=== PATIENT | male | born 1955 | race African-American/Black ===

== ENCOUNTER 2018-08-24 19:08 | Emergency (ER) | payer MEDICARE ==
[2018-08-24 19:37] LABS: #Basophils 0.1 thou/uL (0.0-0.2); #Lymphocytes 1.4 thou/uL (1.20-3.40); #Monocytes 1.3 thou/uL (0.11-0.59); #Neutrophils 11.2 thou/uL (1.40-6.50); %Basophils 0.5 % (0.0-1.0); %Eosinophils 0.1 % (0.0-10.0); %Monocytes 9.5 % (0.0-10.0); %Neutrophils 79.9 % (42.0-75.0); Hemoglobin 16.4 g/dL (14.0-18.0); Mean Corpuscular HGB CONC 31.8 g/dL (32.0-36.0); Mean Corpuscular Hemoglobin 29.5 pg (27.0-31.0); Mean Corpuscular Volume 92.8 fL (78.0-98.0); Mean Platelet Volume 7.1 fL (7.4-10.4); Platelet Count 255 thou/uL (130-400); RBC Distribution Width 11.9 % (11.5-14.5); Red Blood Cell (RBC) Count 5.57 mill/uL (4.70-6.10)
[2018-08-24 19:44] LABS: PTT 30.6 SEC (22.9-36.1); Prothrombin Time 13.5 SEC (12.0-14.7)
[2018-08-24 19:52] LABS: ALT (SGPT) 48 U/L (8-55); AST (SGOT) 215 U/L (5-34); Albumin 4.2 g/dL (3.4-4.8); Alkaline Phosphatase 154 U/L (40-150); Anion Gap 17 mmol/L (10-20); BUN (Urea Nitrogen) 12 mg/dL (8.4-25.7); Bilirubin, Total 0.9 mg/dL (0.2-1.2); Calc. Creatinine Clearance 0 mL/min (70-130); Calcium 9.2 mg/dL (7.8-10.44); Carbon Dioxide 24 mmol/L (23-31); Chloride 91 mmol/L (98-107); Estimated GFR-MDRD 70; Globulin 2.7 g/dL (2.4-3.5); Glucose 375 mg/dL (80-115); Potassium 4.1 mmol/L (3.5-5.1); Protein, Total 6.9 g/dL (5.8-8.1); Sodium 128 mmol/L (136-145)
--- NOTE | 2018-08-24 20:04 | RAD ---
PORTABLE CHEST: 08/24/18 An AP portable film at 1933 is compared with a 06/10/04 study. The heart is borderline in size but probably still normal for age and projection. There is no vascula r congestion, edema or pleural effusion. The lungs are clear. The trachea is midline. There is faint calcification in the aortic arch. IMPRESSION: No acute thoracic findings. POS: HOME
[2018-08-24] MEDS ORDERED: Heparin 25,000 units/D5W 500 ML ONE (20:10)
[2018-08-24] MEDS ORDERED: Nitroglycerin 50 MG/250 ML BOT 250 ML ONE (20:11)
[2018-08-24] MEDS ORDERED: Nitroglycerin 0.4 MG TAB 1 EACH ONE (20:12)
[2018-08-24] MEDS ORDERED: Aspirin Chewable 81 MG TAB ONE (20:15)
[2018-08-24 20:31] LABS: CKMB 48.5 ng/mL (0-6.6)
== END 2018-08-24 20:05 | disposition short-term general hospital (02) ==
LOC: BURERS 19:08
DX: I21.3 ST elevation (STEMI) myocardial infarction of unspecified site (principal); E11.9 Type 2 diabetes mellitus without complications; I10 Essential (primary) hypertension; E78.5 Hyperlipidemia, unspecified; Z86.73 Personal history of transient ischemic attack (TIA), and cerebral infarction without residual deficits
CPT/HCPCS: 71045; 80053; 82553; 83880; 84484; 85025; 85610; 85730; 93005; 96374; J1644

== ENCOUNTER → 2019-12-12 | Emergency (ER) | payer MEDICARE ==
[~2019-12-12] MED LIST: Fentanyl 100 MCG/2 ML VIAL ONE; Nitroglycerin 50 MG/250 ML BOT 250 ML ONE; Rocuronium Bromide 50 MG/5 ML VIAL ONE
[2019-12-12 16:20] LABS: INR-International Normal Ratio 1.2; PTT 34.5 sec (22.9-36.1); Prothrombin Time 15.2 sec (12.0-14.7)
[2019-12-12 16:28] LABS: #Basophils 0.1 thou/uL (0.0-0.2); #Lymphocytes 4.6 thou/uL (1.20-3.40); #Monocytes 1.1 thou/uL (0.11-0.59); #Neutrophils 6.1 thou/uL (1.40-6.50); %Basophils 0.8 % (0.0-1.0); %Eosinophils 0.1 % (0.0-10.0); %Lymphocytes 38.2 % (21.0-51.0); %Monocytes 9.5 % (0.0-10.0); %Neutrophils 51.4 % (42.0-75.0); Hemoglobin 14.3 g/dL (14.0-18.0); Mean Corpuscular HGB CONC 30.5 g/dL (32.0-36.0); Mean Corpuscular Hemoglobin 29.7 pg (27.0-31.0); Mean Corpuscular Volume 97.4 fL (78.0-98.0); Mean Platelet Volume 7.1 fL (7.4-10.4); Platelet Count 220 thou/uL (130-400); RBC Distribution Width 11.5 % (11.5-14.5); Red Blood Cell (RBC) Count 4.83 mill/uL (4.70-6.10); White Blood Cell (WBC) Count 11.9 thou/uL (4.8-10.8)
[2019-12-12 16:31] LABS: AST (SGOT) 56 U/L (5-34); Albumin 4.1 g/dL (3.4-4.8); Alkaline Phosphatase 237 U/L (40-110); Anion Gap 22 mmol/L (10-20); BUN (Urea Nitrogen) 7 mg/dL (8.4-25.7); Bilirubin, Total 0.4 mg/dL (0.2-1.2); CK (CPK) 155 U/L (30-200); Calc. Creatinine Clearance 0 mL/min (70-130); Calcium 8.9 mg/dL (7.8-10.44); Carbon Dioxide 19 mmol/L (23-31); Chloride 97 mmol/L (98-107); Estimated GFR-MDRD 69; Globulin 3.4 g/dL (2.4-3.5); Glucose 331 mg/dL (80-115); Potassium 3.8 mmol/L (3.5-5.1); Protein, Total 7.5 g/dL (5.8-8.1); Sodium 134 mmol/L (136-145)
[2019-12-12 16:46] LABS: ALT (SGPT) 27 U/L (8-55)
[2019-12-12 16:48] LABS: CKMB 1.3 ng/mL (0-6.6)
[2019-12-12 17:02] LABS: Base Excess-Venous -11.4 mmol/L (-2.0 to 3.0); Chloride 100 mmol/L (98-107); Hemoglobin - Calc 15.5 g/dL (14.0-18.0); Potassium 4.1 mmol/L (3.5-5.1); Sodium 137 mmol/L (138-145); T. Carbon Dioxide 26.1 mmol/L (22.0-28.0)
--- NOTE | 2019-12-12 20:36 | RAD ---
PORTABLE CHEST: Date: 12-12-2019 An AP portable film at 1633 is compared with a 10-24-[address] [facility]. FINDINGS: The patient has been intubated with the tip of the endotracheal tube in appropriate position. I belie ve an NG tube may be present as well but I cannot definitely follow it all the way to the stomach. The heart is normal in size. There are patchy pulmonary infiltrates present bilaterally, most promine nt in the right lung base. Additionally, there is a new opacity just at and above the left hilum that could be a mass or infection. There are some hazy infiltrates present in the left lung base as well, though not as prominent as the right. The costophrenic angles are not shown on the study, but no lar ge effusions were indicated. IMPRESSION: 1. Adequate position of endotracheal tube. Questionable positioning of NG tube. 2. Patchy left suprahilar opacity. Neoplasm versus infection. Follow up needed. 3. Diffuse pulmonary infiltrates, most notable in the right lung base an infectious etiology seems romelia nieves. POS: HOME
== END ==
LOC: BURERS 16:03
DX: J96.90 Respiratory failure, unspecified, unspecified whether with hypoxia or hypercapnia (principal); I16.0 Hypertensive urgency; D72.829 Elevated white blood cell count, unspecified; E87.2 Acidosis; I25.2 Old myocardial infarction; I10 Essential (primary) hypertension; E78.5 Hyperlipidemia, unspecified; E11.9 Type 2 diabetes mellitus without complications; Z95.5 Presence of coronary angioplasty implant and graft
CPT/HCPCS: 31500; 71045; 80053; 82330; 82550; 82553; 82803; 83605; 84443; 84484; 85025; 85610; 85730; 93005; 96361; 96365; 96375; J3010

== ENCOUNTER 2022-04-16 02:39 | Emergency (ER) | payer MEDICARE ==
[2022-04-16 03:39] LABS: #Lymphocytes 0.9 thou/uL (1.20-3.40); #Monocytes 0.7 thou/uL (0.11-0.59); #Neutrophils 8.6 thou/uL (1.40-6.50); %Basophils 0.5 % (0.0-1.0); %Eosinophils 0.1 % (0.0-10.0); %Lymphocytes 8.7 % (21.0-51.0); %Monocytes 7.2 % (0.0-10.0); %Neutrophils 83.6 % (42.0-75.0); Hemoglobin 14.2 g/dL (14.0-18.0); Mean Corpuscular HGB CONC 32.8 g/dL (32.0-36.0); Mean Corpuscular Hemoglobin 31.1 pg (27.0-31.0); Mean Corpuscular Volume 94.8 fl (78.0-98.0); Mean Platelet Volume 7.1 fL (7.4-10.4); Platelet Count 244 10x3/uL (130-400); RBC Distribution Width 11.4 % (11.5-14.5); Red Blood Cell (RBC) Count 4.58 mill/uL (4.70-6.10); White Blood Cell (WBC) Count 10.3 10x3/uL (4.8-10.8)
[2022-04-16] MEDS ORDERED: Lorazepam 2 MG/ML VIAL ONE ×2 (03:44→04:34)
[2022-04-16] MEDS ORDERED: niCARdipine 25 MG/10 ML VIAL ONE (03:54)
[2022-04-16 03:56] LABS: ALT (SGPT) 38 U/L (8-55); AST (SGOT) 50 U/L (5-34); Albumin 3.8 g/dL (3.4-4.8); Alkaline Phosphatase 157 U/L (40-110); Anion Gap 14 mmol/L (10-20); BUN (Urea Nitrogen) 6 mg/dL (8.4-25.7); Bilirubin, Total 0.3 mg/dL (0.2-1.2); Calc. Creatinine Clearance 0 mL/min (70-130); Calcium 8.1 mg/dL (7.8-10.44); Carbon Dioxide 29 mmol/L (23-31); Chloride 94 mmol/L (98-107); Estimated GFR 97; Globulin 2.5 g/dL (2.4-3.5); Glucose 393 mg/dL (80-115); Potassium 3.4 mmol/L (3.5-5.1); Protein, Total 6.3 g/dL (5.8-8.1); Sodium 134 mmol/L (136-145)
[2022-04-16 04:01] LABS: Base Excess-Venous -0.7 mmol/L (-2.0 to 3.0); Bicarbonate (HCO3v) 28.7 mmol/L (22.0-28.0); CO2 Tension (PvCO2) 67.3 mmHg (42.0-51.0); Calcium, Ionized 1.07 mmol/L (1.15-1.33); Chloride 92 mmol/L (98-107); Hemoglobin - Calc 15.1 g/dL (14.0-18.0); Potassium 3.3 mmol/L (3.5-5.1); Sodium 134 mmol/L (138-145); T. Carbon Dioxide 30.7 mmol/L (22.0-28.0); vO2 Saturation-calc 94.8 % (60.0-85.0)
[2022-04-16 04:08] LABS: Acetaminophen Less than 10.0 mcg/mL (10.0-30.0); Alcohol Less than 10 mg/dL (Less than 10); Salicylate Less than 8.0 mg/dL (15.0-30.0)
[2022-04-16] MEDS ORDERED: Fentanyl 100 MCG/2 ML VIAL ONE (04:17)
[2022-04-16 04:28] LABS: CKMB 3.3 ng/mL (0-6.6)
[2022-04-16] MEDS ORDERED: Aspirin 300 MG Suppository ONE (05:00)
[2022-04-16] MEDS ORDERED: Cefepime 1 GM VIAL ONE (05:00)
[2022-04-16 05:22] LABS: Bilirubin Negative (Negative); Blood, Urine Trace (Negative); Clarity Clear (Clear); Glucose, Urine (Dipstick) 500 mg/dL (Negative); Ketone, Urine Negative (Negative); Leukocyte Negative (Negative); Nitrite Negative (Negative); Protein, Urine (Dipstick) 100 mg/dL (Neg-Trace); pH, Urine 6.5 (5.0-9.0)
[2022-04-16 05:37] LABS: Amphetamine Not Detected (NotDetected); Barbiturates Screen Not Detected (NotDetected); Benzodiazepine Screen Not Detected (NotDetected); Cocaine Metabolite Screen Detected (NotDetected); Medtox Control Line Valid? VALID (VALID); Methadone Not Detected (NotDetected); Methamphetamine Not Detected (NotDetected); Opiate Screen Not Detected (NotDetected); Oxycodone Screen Not Detected (NotDetected); Phencyclidine (PCP) Not Detected (NotDetected); THC/Cannabinoid Screen Not Detected (NotDetected); Tricyclic Screen Not Detected (NotDetected)
[2022-04-16 05:39] LABS: Bacteria/HPF Rare-Few HPF (None Seen); RBC/HPF 0-3 HPF (0-3); Squamous Epithelial 0-3 HPF (0-3); WBC/HPF 0-3 HPF (0-3)
[2022-04-16] MEDS ORDERED: Rocuronium Bromide 10 MG/ML (10ML VIAL) ONE (13:08)
== END 2022-04-16 05:05 | disposition short-term general hospital (02) ==
LOC: BURERS 02:39
DX: J96.90 Respiratory failure, unspecified, unspecified whether with hypoxia or hypercapnia (principal); J44.9 Chronic obstructive pulmonary disease, unspecified; E11.9 Type 2 diabetes mellitus without complications; I10 Essential (primary) hypertension; F17.210 Nicotine dependence, cigarettes, uncomplicated; Z79.899 Other long term (current) drug therapy; Z79.82 Long term (current) use of aspirin
CPT/HCPCS: 31500; 51702; 70450; 71045; 80053; 80306; 80307; 81003; 81015; 82330; 82553; 82803; 83880; 84443; 84484; 85025; 87086; 93005; 96374; 96376; 99292; J0692; J2060; J3010

== ENCOUNTER 2022-12-25 15:36 | Inpatient (IN) | payer MEDICARE ==
[2022-12-25 19:43] VITALS: BMI 19.8
[2022-12-25] MEDS ORDERED: Bisacodyl 10 MG SUPP PR PRN (22:56)
[2022-12-25] MEDS ORDERED: Glucagon 1 MG/ML KIT IM PRN (22:58)
[2022-12-25] MEDS ORDERED: Dextrose 5% in Water 1,000 ML IV PRN (22:58)
[2022-12-25] MEDS ORDERED: Dextrose 50% Abboject 50 ML SYRINGE SLOW IVP PRN (22:58)
[2022-12-26] MEDS: Famotidine 20 MG TAB PO SCH ×2 (10:34→21:32)
[2022-12-26] MEDS: Spironolactone 25 MG TAB PO SCH (10:34)
[2022-12-26] MEDS: Amoxicillin/Potassium Clav 875 MG TAB PO SCH ×2 (10:34→21:30)
[2022-12-26] MEDS: Furosemide 20 MG TAB PO SCH (10:34)
[2022-12-26] MEDS: Carvedilol 6.25 MG TAB PO SCH ×2 (10:35→21:30)
[2022-12-26] MEDS: Lisinopril 10 MG TAB PO SCH ×2 (10:35→21:31)
[2022-12-26] MEDS: Lantus 1000 UNITS/10 ML VIAL SC SCH (10:35)
[2022-12-26] MEDS: Isosorbide Dinitrate 20 MG TAB PO SCH ×2 (10:36→21:31)
[2022-12-26] MEDS: hydrALAZINE 25 MG TAB PO SCH ×3 (10:36→21:31)
[2022-12-26] MEDS: HumaLOG 300 UNITS/3 ML VIAL SC PRN ×2 (12:00→18:38)
[2022-12-26] MEDS: Atorvastatin Calcium 40 MG TAB PO SCH (21:31)
[2022-12-27] MEDS: Acetaminophen 325 MG TAB PO PRN (04:09)
[2022-12-27] MEDS: Furosemide 20 MG TAB PO SCH (08:56)
[2022-12-27] MEDS: Spironolactone 25 MG TAB PO SCH (08:56)
[2022-12-27] MEDS: Famotidine 20 MG TAB PO SCH ×2 (08:56→21:00)
[2022-12-27] MEDS: hydrALAZINE 25 MG TAB PO SCH ×3 (08:57→21:00)
[2022-12-27] MEDS: Isosorbide Dinitrate 20 MG TAB PO SCH ×2 (08:57→21:00)
[2022-12-27] MEDS: Lisinopril 10 MG TAB PO SCH ×2 (08:57→21:00)
[2022-12-27] MEDS: Carvedilol 6.25 MG TAB PO SCH ×2 (08:57→21:00)
[2022-12-27] MEDS: Amoxicillin/Potassium Clav 875 MG TAB PO SCH ×2 (08:58→21:00)
[2022-12-27] MEDS: Lantus 1000 UNITS/10 ML VIAL SC SCH (09:08)
[2022-12-27] MEDS: HumaLOG 300 UNITS/3 ML VIAL SC PRN (12:17)
[2022-12-27] MEDS: Atorvastatin Calcium 40 MG TAB PO SCH (21:00)
[2022-12-28] MEDS: Amoxicillin/Potassium Clav 875 MG TAB PO SCH ×2 (08:13→21:10)
[2022-12-28] MEDS: Furosemide 20 MG TAB PO SCH (08:14)
[2022-12-28] MEDS: Isosorbide Dinitrate 20 MG TAB PO SCH ×2 (08:14→21:12)
[2022-12-28] MEDS: Lisinopril 10 MG TAB PO SCH ×2 (08:14→21:11)
[2022-12-28] MEDS: Spironolactone 25 MG TAB PO SCH (08:15)
[2022-12-28] MEDS: hydrALAZINE 25 MG TAB PO SCH ×3 (08:15→21:11)
[2022-12-28] MEDS: Famotidine 20 MG TAB PO SCH ×2 (08:15→21:10)
[2022-12-28] MEDS: Carvedilol 6.25 MG TAB PO SCH ×2 (08:16→21:10)
[2022-12-28] MEDS: Lantus 1000 UNITS/10 ML VIAL SC SCH (08:23)
[2022-12-28] MEDS: HumaLOG 300 UNITS/3 ML VIAL SC PRN (11:58)
[2022-12-28] MEDS: Acetaminophen 325 MG TAB PO PRN (21:11)
[2022-12-28] MEDS: Atorvastatin Calcium 40 MG TAB PO SCH (21:11)
[2022-12-29] MEDS: traMADol HCl 50 MG TAB PO PRN ×2 (05:56→22:00)
[2022-12-29] MEDS: HumaLOG 300 UNITS/3 ML VIAL SC PRN ×2 (08:51→12:28)
[2022-12-29] MEDS: Carvedilol 6.25 MG TAB PO SCH ×2 (08:52→21:01)
[2022-12-29] MEDS: hydrALAZINE 25 MG TAB PO SCH ×3 (08:52→21:00)
[2022-12-29] MEDS: Famotidine 20 MG TAB PO SCH ×2 (08:52→21:01)
[2022-12-29] MEDS: Isosorbide Dinitrate 20 MG TAB PO SCH ×2 (08:52→21:01)
[2022-12-29] MEDS: Amoxicillin/Potassium Clav 875 MG TAB PO SCH ×2 (08:53→21:01)
[2022-12-29] MEDS: Lisinopril 10 MG TAB PO SCH ×2 (08:53→21:00)
[2022-12-29] MEDS: Furosemide 20 MG TAB PO SCH (08:53)
[2022-12-29] MEDS: Spironolactone 25 MG TAB PO SCH (08:53)
[2022-12-29] MEDS: Lantus 1000 UNITS/10 ML VIAL SC SCH (08:54)
[2022-12-29] MEDS: Atorvastatin Calcium 40 MG TAB PO SCH (21:00)
[2022-12-30] MEDS: Lisinopril 10 MG TAB PO SCH ×2 (09:03→20:49)
[2022-12-30] MEDS: Amoxicillin/Potassium Clav 875 MG TAB PO SCH ×2 (09:03→20:48)
[2022-12-30] MEDS: Isosorbide Dinitrate 20 MG TAB PO SCH ×2 (09:03→20:48)
[2022-12-30] MEDS: Spironolactone 25 MG TAB PO SCH (09:03)
[2022-12-30] MEDS: Furosemide 20 MG TAB PO SCH (09:04)
[2022-12-30] MEDS: Carvedilol 6.25 MG TAB PO SCH ×2 (09:04→20:49)
[2022-12-30] MEDS: Lantus 1000 UNITS/10 ML VIAL SC SCH (09:04)
[2022-12-30] MEDS: hydrALAZINE 25 MG TAB PO SCH ×3 (09:04→20:48)
[2022-12-30] MEDS: Famotidine 20 MG TAB PO SCH ×2 (09:04→20:48)
[2022-12-30] MEDS: Atorvastatin Calcium 40 MG TAB PO SCH (20:48)
[2022-12-30] MEDS: Acetaminophen 325 MG TAB PO PRN ×2 (21:55→22:01)
[2022-12-31] MEDS: Acetaminophen 325 MG TAB PO PRN (05:40)
[2022-12-31] MEDS: traMADol HCl 50 MG TAB PO PRN ×2 (06:33→21:34)
[2022-12-31] MEDS: Isosorbide Dinitrate 20 MG TAB PO SCH ×2 (09:20→21:42)
[2022-12-31] MEDS: Amoxicillin/Potassium Clav 875 MG TAB PO SCH ×2 (09:20→21:34)
[2022-12-31] MEDS: Carvedilol 6.25 MG TAB PO SCH ×2 (09:21→21:42)
[2022-12-31] MEDS: Furosemide 20 MG TAB PO SCH (09:21)
[2022-12-31] MEDS: Spironolactone 25 MG TAB PO SCH (09:22)
[2022-12-31] MEDS: hydrALAZINE 25 MG TAB PO SCH ×3 (09:22→21:42)
[2022-12-31] MEDS: Famotidine 20 MG TAB PO SCH ×2 (09:22→21:33)
[2022-12-31] MEDS: Lisinopril 10 MG TAB PO SCH ×2 (09:22→21:43)
[2022-12-31] MEDS: Lantus 1000 UNITS/10 ML VIAL SC SCH (09:23)
[2022-12-31] MEDS: HumaLOG 300 UNITS/3 ML VIAL SC PRN ×2 (12:32→17:33)
[2022-12-31] MEDS: Atorvastatin Calcium 40 MG TAB PO SCH (21:35)
[2023-01-01] MEDS: Isosorbide Dinitrate 20 MG TAB PO SCH ×2 (09:28→21:49)
[2023-01-01] MEDS: Lisinopril 10 MG TAB PO SCH ×2 (09:29→21:48)
[2023-01-01] MEDS: Furosemide 20 MG TAB PO SCH (09:29)
[2023-01-01] MEDS: Spironolactone 25 MG TAB PO SCH (09:29)
[2023-01-01] MEDS: Amoxicillin/Potassium Clav 875 MG TAB PO SCH ×2 (09:30→21:48)
[2023-01-01] MEDS: hydrALAZINE 25 MG TAB PO SCH ×3 (09:30→21:48)
[2023-01-01] MEDS: Carvedilol 6.25 MG TAB PO SCH ×2 (09:30→21:47)
[2023-01-01] MEDS: Famotidine 20 MG TAB PO SCH ×2 (09:32→21:48)
[2023-01-01] MEDS: Lantus 1000 UNITS/10 ML VIAL SC SCH (09:33)
[2023-01-01] MEDS: Ondansetron ODT 4 MG TAB PO PRN (12:00)
[2023-01-01] MEDS: HumaLOG 300 UNITS/3 ML VIAL SC PRN ×2 (12:51→17:31)
[2023-01-01] MEDS: traMADol HCl 50 MG TAB PO PRN (12:56)
[2023-01-01] MEDS: Atorvastatin Calcium 40 MG TAB PO SCH (21:50)
[2023-01-02] MEDS: Furosemide 20 MG TAB PO SCH (09:39)
[2023-01-02] MEDS: Spironolactone 25 MG TAB PO SCH (09:39)
[2023-01-02] MEDS: Amoxicillin/Potassium Clav 875 MG TAB PO SCH ×2 (09:39→21:57)
[2023-01-02] MEDS: Lisinopril 10 MG TAB PO SCH ×2 (09:39→21:57)
[2023-01-02] MEDS: Carvedilol 6.25 MG TAB PO SCH ×2 (09:39→21:57)
[2023-01-02] MEDS: hydrALAZINE 25 MG TAB PO SCH ×3 (09:40→21:58)
[2023-01-02] MEDS: Famotidine 20 MG TAB PO SCH ×2 (09:40→21:58)
[2023-01-02] MEDS: Isosorbide Dinitrate 20 MG TAB PO SCH ×2 (09:40→21:58)
[2023-01-02] MEDS: Lantus 1000 UNITS/10 ML VIAL SC SCH (09:41)
[2023-01-02] MEDS: HumaLOG 300 UNITS/3 ML VIAL SC PRN (12:19)
[2023-01-02] MEDS: Atorvastatin Calcium 40 MG TAB PO SCH (21:58)
[2023-01-03] MEDS: Spironolactone 25 MG TAB PO SCH (08:48)
[2023-01-03] MEDS: Isosorbide Dinitrate 20 MG TAB PO SCH ×2 (08:49→20:07)
[2023-01-03] MEDS: Amoxicillin/Potassium Clav 875 MG TAB PO SCH ×2 (08:49→20:06)
[2023-01-03] MEDS: Furosemide 20 MG TAB PO SCH (08:49)
[2023-01-03] MEDS: Lisinopril 10 MG TAB PO SCH ×2 (08:49→20:07)
[2023-01-03] MEDS: hydrALAZINE 25 MG TAB PO SCH ×3 (08:49→20:07)
[2023-01-03] MEDS: Famotidine 20 MG TAB PO SCH ×2 (08:49→20:06)
[2023-01-03] MEDS: Carvedilol 6.25 MG TAB PO SCH ×2 (08:50→20:06)
[2023-01-03] MEDS: Lantus 1000 UNITS/10 ML VIAL SC SCH (08:51)
[2023-01-03] MEDS: HumaLOG 300 UNITS/3 ML VIAL SC PRN ×2 (12:02→20:08)
[2023-01-03] MEDS: Atorvastatin Calcium 40 MG TAB PO SCH (20:06)
[2023-01-03] MEDS: Ondansetron ODT 4 MG TAB PO PRN (22:12)
[2023-01-04] MEDS: Lantus 1000 UNITS/10 ML VIAL SC SCH (08:39)
[2023-01-04] MEDS: Isosorbide Dinitrate 20 MG TAB PO SCH ×2 (08:41→20:58)
[2023-01-04] MEDS: hydrALAZINE 25 MG TAB PO SCH ×3 (08:41→20:57)
[2023-01-04] MEDS: Carvedilol 6.25 MG TAB PO SCH ×2 (08:41→20:55)
[2023-01-04] MEDS: Amoxicillin/Potassium Clav 875 MG TAB PO SCH (08:41)
[2023-01-04] MEDS: Lisinopril 10 MG TAB PO SCH ×2 (08:41→20:57)
[2023-01-04] MEDS: Spironolactone 25 MG TAB PO SCH (08:41)
[2023-01-04] MEDS: Famotidine 20 MG TAB PO SCH ×2 (08:41→20:57)
[2023-01-04] MEDS: Furosemide 20 MG TAB PO SCH (08:42)
[2023-01-04] MEDS: HumaLOG 300 UNITS/3 ML VIAL SC PRN ×2 (11:54→20:54)
[2023-01-04] MEDS: Atorvastatin Calcium 40 MG TAB PO SCH (20:58)
[2023-01-05] MEDS: hydrALAZINE 25 MG TAB PO SCH ×3 (08:24→21:34)
[2023-01-05] MEDS: Lantus 1000 UNITS/10 ML VIAL SC SCH (08:24)
[2023-01-05] MEDS: Isosorbide Dinitrate 20 MG TAB PO SCH ×2 (08:25→21:33)
[2023-01-05] MEDS: Carvedilol 6.25 MG TAB PO SCH ×2 (08:25→21:33)
[2023-01-05] MEDS: Spironolactone 25 MG TAB PO SCH (08:25)
[2023-01-05] MEDS: Lisinopril 10 MG TAB PO SCH ×2 (08:25→21:30)
[2023-01-05] MEDS: Furosemide 20 MG TAB PO SCH (08:25)
[2023-01-05] MEDS: Famotidine 20 MG TAB PO SCH ×2 (08:25→21:33)
[2023-01-05] MEDS: traMADol HCl 50 MG TAB PO PRN (09:38)
[2023-01-05] MEDS: HumaLOG 300 UNITS/3 ML VIAL SC PRN (12:26)
[2023-01-05] MEDS: Atorvastatin Calcium 40 MG TAB PO SCH (21:33)
[2023-01-06] MEDS: Bisacodyl 5 MG TAB PO PRN (05:09)
[2023-01-06] MEDS: Lantus 1000 UNITS/10 ML VIAL SC SCH (08:31)
[2023-01-06] MEDS: Sertraline 100 MG TAB PO SCH (08:32)
[2023-01-06] MEDS: Carvedilol 6.25 MG TAB PO SCH ×2 (08:33→21:06)
[2023-01-06] MEDS: hydrALAZINE 25 MG TAB PO SCH ×3 (08:33→21:06)
[2023-01-06] MEDS: Isosorbide Dinitrate 20 MG TAB PO SCH ×2 (08:33→21:06)
[2023-01-06] MEDS: Spironolactone 25 MG TAB PO SCH (08:33)
[2023-01-06] MEDS: Furosemide 20 MG TAB PO SCH (08:34)
[2023-01-06] MEDS: Lisinopril 10 MG TAB PO SCH ×2 (08:34→21:06)
[2023-01-06] MEDS: Famotidine 20 MG TAB PO SCH ×2 (08:34→21:06)
[2023-01-06] MEDS: HumaLOG 300 UNITS/3 ML VIAL SC PRN (11:47)
[2023-01-06] MEDS: traMADol HCl 50 MG TAB PO PRN (14:45)
[2023-01-06] MEDS: Atorvastatin Calcium 40 MG TAB PO SCH (21:06)
[2023-01-07] MEDS: Isosorbide Dinitrate 20 MG TAB PO SCH ×2 (09:25→21:00)
[2023-01-07] MEDS: Lisinopril 10 MG TAB PO SCH ×2 (09:25→21:00)
[2023-01-07] MEDS: Carvedilol 6.25 MG TAB PO SCH ×2 (09:27→21:00)
[2023-01-07] MEDS: hydrALAZINE 25 MG TAB PO SCH ×3 (09:28→21:00)
[2023-01-07] MEDS: Famotidine 20 MG TAB PO SCH ×2 (09:28→21:34)
[2023-01-07] MEDS: Sertraline 100 MG TAB PO SCH (09:28)
[2023-01-07] MEDS: Spironolactone 25 MG TAB PO SCH (09:28)
[2023-01-07] MEDS: Furosemide 20 MG TAB PO SCH (09:28)
[2023-01-07] MEDS: Lantus 1000 UNITS/10 ML VIAL SC SCH (09:29)
[2023-01-07] MEDS: HumaLOG 300 UNITS/3 ML VIAL SC PRN ×3 (12:22→21:07)
[2023-01-07] MEDS: Atorvastatin Calcium 40 MG TAB PO SCH (20:59)
[2023-01-08] MEDS: traMADol HCl 50 MG TAB PO PRN (05:51)
[2023-01-08] MEDS: Famotidine 20 MG TAB PO SCH ×2 (08:59→20:16)
[2023-01-08] MEDS: Carvedilol 6.25 MG TAB PO SCH ×2 (08:59→20:16)
[2023-01-08] MEDS: Furosemide 20 MG TAB PO SCH (08:59)
[2023-01-08] MEDS: Spironolactone 25 MG TAB PO SCH (08:59)
[2023-01-08] MEDS: Sertraline 100 MG TAB PO SCH (09:00)
[2023-01-08] MEDS: Lisinopril 10 MG TAB PO SCH ×2 (09:01→20:16)
[2023-01-08] MEDS: Isosorbide Dinitrate 20 MG TAB PO SCH ×2 (09:02→20:16)
[2023-01-08] MEDS: hydrALAZINE 25 MG TAB PO SCH ×3 (09:03→20:17)
[2023-01-08] MEDS: Lantus 1000 UNITS/10 ML VIAL SC SCH (09:04)
[2023-01-08] MEDS: HumaLOG 300 UNITS/3 ML VIAL SC PRN ×2 (12:12→17:50)
[2023-01-08] MEDS: Atorvastatin Calcium 40 MG TAB PO SCH (20:17)
[2023-01-09] MEDS: Lantus 1000 UNITS/10 ML VIAL SC SCH (08:43)
[2023-01-09] MEDS: Sertraline 100 MG TAB PO SCH (08:46)
[2023-01-09] MEDS: hydrALAZINE 25 MG TAB PO SCH ×3 (08:47→20:54)
[2023-01-09] MEDS: Spironolactone 25 MG TAB PO SCH (08:47)
[2023-01-09] MEDS: Isosorbide Dinitrate 20 MG TAB PO SCH ×2 (08:48→20:44)
[2023-01-09] MEDS: Carvedilol 6.25 MG TAB PO SCH ×2 (08:48→20:43)
[2023-01-09] MEDS: Famotidine 20 MG TAB PO SCH ×2 (08:48→20:44)
[2023-01-09] MEDS: Lisinopril 10 MG TAB PO SCH ×2 (08:49→20:43)
[2023-01-09] MEDS: Furosemide 20 MG TAB PO SCH (08:49)
[2023-01-09] MEDS: Acetaminophen 325 MG TAB PO PRN ×2 (08:53→20:43)
[2023-01-09] MEDS: HumaLOG 300 UNITS/3 ML VIAL SC PRN (12:54)
[2023-01-09] MEDS: Atorvastatin Calcium 40 MG TAB PO SCH (20:43)
[2023-01-10] MEDS: traMADol HCl 50 MG TAB PO PRN (03:42)
[2023-01-10] MEDS: Lantus 1000 UNITS/10 ML VIAL SC SCH (08:20)
[2023-01-10] MEDS: Isosorbide Dinitrate 20 MG TAB PO SCH ×2 (08:21→20:13)
[2023-01-10] MEDS: Spironolactone 25 MG TAB PO SCH (08:21)
[2023-01-10] MEDS: Furosemide 20 MG TAB PO SCH (08:21)
[2023-01-10] MEDS: Carvedilol 6.25 MG TAB PO SCH ×2 (08:21→20:14)
[2023-01-10] MEDS: Famotidine 20 MG TAB PO SCH ×2 (08:21→20:13)
[2023-01-10] MEDS: Lisinopril 10 MG TAB PO SCH ×2 (08:21→20:13)
[2023-01-10] MEDS: Sertraline 100 MG TAB PO SCH (08:23)
[2023-01-10] MEDS: hydrALAZINE 25 MG TAB PO SCH ×3 (08:23→20:14)
[2023-01-10] MEDS: HumaLOG 300 UNITS/3 ML VIAL SC PRN (12:23)
[2023-01-10] MEDS: Acetaminophen 325 MG TAB PO PRN (16:33)
[2023-01-10] MEDS: Atorvastatin Calcium 40 MG TAB PO SCH (20:13)
[2023-01-11] MEDS: Acetaminophen 325 MG TAB PO PRN ×3 (04:35→15:02)
[2023-01-11] MEDS: Sertraline 100 MG TAB PO SCH (08:32)
[2023-01-11] MEDS: hydrALAZINE 25 MG TAB PO SCH ×3 (08:33→21:31)
[2023-01-11] MEDS: Lisinopril 10 MG TAB PO SCH ×2 (08:33→21:31)
[2023-01-11] MEDS: Famotidine 20 MG TAB PO SCH ×2 (08:33→21:35)
[2023-01-11] MEDS: Isosorbide Dinitrate 20 MG TAB PO SCH ×2 (08:33→21:31)
[2023-01-11] MEDS: Furosemide 20 MG TAB PO SCH (08:33)
[2023-01-11] MEDS: Lantus 1000 UNITS/10 ML VIAL SC SCH (08:35)
[2023-01-11] MEDS: Carvedilol 6.25 MG TAB PO SCH ×2 (08:35→21:31)
[2023-01-11] MEDS: Spironolactone 25 MG TAB PO SCH (08:35)
[2023-01-11] MEDS: Bisacodyl 5 MG TAB PO PRN (08:55)
[2023-01-11] MEDS: HumaLOG 300 UNITS/3 ML VIAL SC PRN (12:00)
[2023-01-11] MEDS: Atorvastatin Calcium 40 MG TAB PO SCH (21:31)
[2023-01-11] MEDS: traMADol HCl 50 MG TAB PO PRN (21:34)
[2023-01-12] MEDS: hydrALAZINE 25 MG TAB PO SCH ×3 (09:30→21:09)
[2023-01-12] MEDS: Carvedilol 6.25 MG TAB PO SCH ×2 (09:39→21:10)
[2023-01-12] MEDS: Sertraline 100 MG TAB PO SCH (09:39)
[2023-01-12] MEDS: Lantus 1000 UNITS/10 ML VIAL SC SCH (09:39)
[2023-01-12] MEDS: Isosorbide Dinitrate 20 MG TAB PO SCH ×2 (09:40→21:10)
[2023-01-12] MEDS: Furosemide 20 MG TAB PO SCH (09:40)
[2023-01-12] MEDS: Famotidine 20 MG TAB PO SCH ×2 (09:40→21:09)
[2023-01-12] MEDS: Spironolactone 25 MG TAB PO SCH (09:40)
[2023-01-12] MEDS: Lisinopril 10 MG TAB PO SCH ×2 (09:40→21:09)
[2023-01-12] MEDS: HumaLOG 300 UNITS/3 ML VIAL SC PRN (12:37)
[2023-01-12] MEDS: traMADol HCl 50 MG TAB PO PRN (20:05)
[2023-01-12] MEDS: Atorvastatin Calcium 40 MG TAB PO SCH (21:09)
[2023-01-13] MEDS: Lisinopril 10 MG TAB PO SCH ×2 (09:35→21:39)
[2023-01-13] MEDS: Famotidine 20 MG TAB PO SCH ×2 (09:35→21:39)
[2023-01-13] MEDS: Isosorbide Dinitrate 20 MG TAB PO SCH ×2 (09:35→21:39)
[2023-01-13] MEDS: hydrALAZINE 25 MG TAB PO SCH ×3 (09:35→21:39)
[2023-01-13] MEDS: Spironolactone 25 MG TAB PO SCH (09:35)
[2023-01-13] MEDS: Sertraline 100 MG TAB PO SCH (09:35)
[2023-01-13] MEDS: Furosemide 20 MG TAB PO SCH (09:36)
[2023-01-13] MEDS: Carvedilol 6.25 MG TAB PO SCH ×2 (09:36→21:39)
[2023-01-13] MEDS: Lantus 1000 UNITS/10 ML VIAL SC SCH (09:37)
[2023-01-13] MEDS: traMADol HCl 50 MG TAB PO PRN (13:09)
[2023-01-13] MEDS: HumaLOG 300 UNITS/3 ML VIAL SC PRN (16:46)
[2023-01-13] MEDS: Atorvastatin Calcium 40 MG TAB PO SCH (21:39)
[2023-01-14] MEDS: traMADol HCl 50 MG TAB PO PRN (05:22)
[2023-01-14] MEDS: Isosorbide Dinitrate 20 MG TAB PO SCH ×2 (09:31→21:18)
[2023-01-14] MEDS: hydrALAZINE 25 MG TAB PO SCH ×3 (09:32→21:19)
[2023-01-14] MEDS: Sertraline 100 MG TAB PO SCH (09:33)
[2023-01-14] MEDS: Carvedilol 6.25 MG TAB PO SCH ×2 (09:33→21:19)
[2023-01-14] MEDS: Furosemide 20 MG TAB PO SCH (09:33)
[2023-01-14] MEDS: Lisinopril 10 MG TAB PO SCH ×2 (09:34→21:20)
[2023-01-14] MEDS: Famotidine 20 MG TAB PO SCH ×2 (09:34→21:20)
[2023-01-14] MEDS: Spironolactone 25 MG TAB PO SCH (09:34)
[2023-01-14] MEDS: Lantus 1000 UNITS/10 ML VIAL SC SCH (09:35)
[2023-01-14] MEDS: HumaLOG 300 UNITS/3 ML VIAL SC PRN ×2 (12:04→21:17)
[2023-01-14] MEDS: Atorvastatin Calcium 40 MG TAB PO SCH (21:20)
[2023-01-15] MEDS: Isosorbide Dinitrate 20 MG TAB PO SCH ×2 (09:00→21:15)
[2023-01-15] MEDS: hydrALAZINE 25 MG TAB PO SCH ×3 (09:01→21:14)
[2023-01-15] MEDS: Spironolactone 25 MG TAB PO SCH (09:02)
[2023-01-15] MEDS: Furosemide 20 MG TAB PO SCH (09:02)
[2023-01-15] MEDS: Famotidine 20 MG TAB PO SCH ×2 (09:02→21:15)
[2023-01-15] MEDS: Lisinopril 10 MG TAB PO SCH ×2 (09:02→21:16)
[2023-01-15] MEDS: Carvedilol 6.25 MG TAB PO SCH ×2 (09:02→21:15)
[2023-01-15] MEDS: Sertraline 100 MG TAB PO SCH (09:03)
[2023-01-15] MEDS: Lantus 1000 UNITS/10 ML VIAL SC SCH (09:06)
[2023-01-15] MEDS: HumaLOG 300 UNITS/3 ML VIAL SC PRN (12:42)
[2023-01-15] MEDS: traMADol HCl 50 MG TAB PO PRN (15:10)
[2023-01-15] MEDS: Atorvastatin Calcium 40 MG TAB PO SCH (21:15)
[2023-01-16] MEDS: Spironolactone 25 MG TAB PO SCH (07:53)
[2023-01-16] MEDS: traMADol HCl 50 MG TAB PO PRN ×2 (07:53→17:01)
[2023-01-16] MEDS: Sertraline 100 MG TAB PO SCH (08:51)
[2023-01-16] MEDS: Carvedilol 6.25 MG TAB PO SCH (08:52)
[2023-01-16] MEDS: Furosemide 20 MG TAB PO SCH (08:52)
[2023-01-16] MEDS: Famotidine 20 MG TAB PO SCH (08:52)
[2023-01-16] MEDS: Lisinopril 10 MG TAB PO SCH (08:52)
[2023-01-16] MEDS: Lantus 1000 UNITS/10 ML VIAL SC SCH (09:01)
[2023-01-16] MEDS: Isosorbide Dinitrate 20 MG TAB PO SCH (09:01)
[2023-01-16] MEDS: hydrALAZINE 25 MG TAB PO SCH ×2 (11:23→16:04)
[2023-01-16 16:02] VITALS: BP 105/62; TEMP 98.5
[2023-01-16] MEDS: Acetaminophen 325 MG TAB PO PRN (17:01)
[2023-01-16] MEDS: HumaLOG 300 UNITS/3 ML VIAL SC PRN (17:02)
== END 2023-01-16 17:35 | DRG 57 ==
LOC: BURMED 19:14
PROVIDERS: ADMIT Family Medicine; ATTEND Family Medicine
DX: I69.354 Hemiplegia and hemiparesis following cerebral infarction affecting left non-dominant side (principal); I50.32 Chronic diastolic (congestive) heart failure; I11.0 Hypertensive heart disease with heart failure; J44.9 Chronic obstructive pulmonary disease, unspecified; E11.9 Type 2 diabetes mellitus without complications; F17.210 Nicotine dependence, cigarettes, uncomplicated; Z85.118 Personal history of other malignant neoplasm of bronchus and lung; Z95.5 Presence of coronary angioplasty implant and graft; Z98.890 Other specified postprocedural states
CPT/HCPCS: 36416; 71045; J1815; Q0162